=== PATIENT | female | born 1950 | race Hispanic/Latino ===

== ENCOUNTER 2017-05-03 08:56 | Day surgery (SDC) | payer MEDICARE, MEDICAID ==
[2017-04-26 10:38] VITALS: BMI 35.1
[2017-05-03] MEDS ORDERED: cefTRIAXone (Rocephin) 1 gm Inj ONE (09:32)
[2017-05-03] MEDS ORDERED: Iohexol 240 (50 ml) ONE (09:32)
[2017-05-03] MEDS ORDERED: Propofol 10 mg/ml Inj (20 ML) ONE (09:47)
[2017-05-03] MEDS ORDERED: Midazolam 2 MG/2 ML VIAL ONE (09:48)
[2017-05-03] MEDS ORDERED: Gentamicin 80 mg/2mL Inj. ONE (09:52)
[2017-05-03] MEDS ORDERED: Tmp-Smz 800 mg-160 mg DS Tab PO SCH (10:15)
[2017-05-03 11:14] VITALS: RESP 18; TEMP 98.4
[2017-05-03 11:37] VITALS: BP 152/83; PULSE 81; O2SAT 95
--- NOTE | 2017-05-03 13:46 | RAD ---
PROCEDURE: Retrograde pyelogram HISTORY: R/O STONES COMPARISON: TECHNIQUE: Fluoroscopy was provided in the operating room. Eight images were obtained. 1 minute of fluoroscopy time was utilized. FINDINGS: There is opacification of both collecting systems and ureters. There are no filling defects seen. No obstruction IMPRESSION: As above
--- NOTE | 2017-05-03 16:13 | OP ---
PROCEDURE DATE: 05/03/2017 PREOPERATIVE DIAGNOSIS: History of hematuria. POSTOPERATIVE DIAGNOSIS: Nonobstructing right lower calyceal calculus. PROCEDURE: Cystoscopy with bilateral retrograde ureteropyelogram. SURGEON: Bob Martinez M.D. ANESTHESIA: IV sedation. DESCRIPTION OF OPERATION: After IV sedation was given, the patient was placed lithotomy, prepped and draped in the usual manner. A 20-[place]ov[place] cystourethroscope was introduced. The urine was obtained f or cytology. Inspection of the bladder showed no tumors, foreign bodies, or stones. Orifices normal in appearance and location with clear efflux. On plain fluoroscopy, I could see a calculus over the expected location of the right lower ruth. An occlusion-tip catheter was placed at the opening of left ureteral orifice. Ureteropyelogram was carried out, which appeared normal to me with no filling defects, no evidence of papillary necrosis. The patient does have a history of taking Percocets chr onically. A similar procedure was done on the right side. The only defect seen was in the right low er ruth corresponding to the stone. There were no other filling defects or abnormalities or evidenc e of papillary necrosis. There was no evidence of any bleeding. The bladder was drained. The cysto scope was removed. The patient was awakened and brought to recovery room in good condition. Bob Martinez MD cc: [id number] TT: 05/03/2017 16:12:24 tn
== END 2017-05-03 12:00 | disposition home or self-care (01) ==
LOC: SDS 08:56
PROVIDERS: ATTEND Urology
DX: N20.0 Calculus of kidney (principal); R31.9 Hematuria, unspecified; I10 Essential (primary) hypertension; J43.9 Emphysema, unspecified; E11.9 Type 2 diabetes mellitus without complications; Z79.84 Long term (current) use of oral hypoglycemic drugs
CPT/HCPCS: 52005; 74420; 87086; 88108; C1758; J2001; J2250; J2704; J3010; J7120; Q9966

== ENCOUNTER 2018-04-07 06:19 | Day surgery (SDC) | payer MEDICARE, MEDICAID ==
[2018-03-29 14:52] VITALS: BMI 37.6
[2018-04-07] MEDS ORDERED: Propofol 10 mg/ml Inj (20 ML) ONE ×3 (08:28→09:15)
[2018-04-07] MEDS ORDERED: Sodium Chloride 0.9% 1,000 ML IV SCH (08:45)
[2018-04-07 10:05] VITALS: BP 138/85; PULSE 82; RESP 18; TEMP 98.2; O2SAT 96
--- NOTE | 2018-04-07 16:52 | CARD ---
APPROVED REPORT EKG Measurement Heart [id number] <Conclusion> Normal sinus rhythm Nonspecific ST and T wave abnormality Prolonged QT Abnormal ECG
== END 2018-04-07 12:29 | disposition home or self-care (01) ==
LOC: ENDO 06:19
PROVIDERS: ATTEND Internal Medicine Gastroenterology
DX: Z12.11 Encounter for screening for malignant neoplasm of colon (principal); K63.5 Polyp of colon; K31.7 Polyp of stomach and duodenum; K21.0 Gastro-esophageal reflux disease with esophagitis; K29.70 Gastritis, unspecified, without bleeding; K64.1 Second degree hemorrhoids; R13.10 Dysphagia, unspecified; I10 Essential (primary) hypertension; E11.9 Type 2 diabetes mellitus without complications; Z79.84 Long term (current) use of oral hypoglycemic drugs
CPT/HCPCS: 43239; 43251; 45380; 82948; 88305; 88312; 88342; 93005; J2704; J7040 ×2

== ENCOUNTER 2019-03-15 12:47 | Outpatient (CLI) | payer MEDICARE, MEDICAID | END 2019-03-15 12:48 | disposition home or self-care (01) | LOC: RAD 12:47 ==